=== PATIENT | male | born 1985 | race Caucasian/White ===

== ENCOUNTER 2019-04-15 13:53 | Emergency (ER) | payer OTHER ==
--- NOTE | 2019-04-15 14:25 | EDM.PDOC ---
ED HPI GENERAL MEDICAL PROBLEM - General Chief Complaint: Respiratory Problem Stated Complaint: POSSIBLE BLOOD CLOT Time Seen by Provider: 04/15/19 13:56 Source of Information: Reports: Patient History Limitations: Reports: No Limitations - History of Present Illness INITIAL COMMENTS - FREE TEXT/NARRATIVE: HISTORY AND PHYSICAL: History of present illness: Patient is a 33-year-old male presents to the ED today with concern of possible blood clot in his left leg and possible on the right side of his lung. Patient states he has had swelling off and on the left leg over the past several weeks with having a sharp pain in the right side of the top of his lung over the past 2 days. 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 Patient states he was on anticoagulation has not been taking it for quite some time. Patient denies any associated of symptoms. Patient denies fever, chills, chest pain, shortness of breath, or cough. Denies headache, neck stiff ness, change in vision, syncope, or near syncope. Denies nausea, vomiting, abdominal pain, diarrhea, constipation, or dysuria. Has not noted any blood in urine or stool. Patient has been eating and drinking appropriately. Review of systems: As per history of present illness and below otherwise all systems reviewed and negative. Past medical history: As per history of present illness and as reviewed below otherwise noncontributory. Surgical history: As per history of present illness and as reviewed below otherwise noncontributory. Social history: See social history for further information Family history: As per history of present illness and as reviewed below otherwise noncontributory. Physical exam: General: Patient is alert, oriented, and in no acute distress. Patient sitting comfortably on exam table. HEENT: Atraumatic, normocephalic, pupils equal and reactive bilaterally, negative for conjunctival pallor or scleral icterus, mucous membranes moist, TMs normal bilaterally, throat clear, neck supple, nontender, trachea midline. No drooling or trismus noted. No meningeal signs. No hot potato voice noted. Lungs: Clear to auscultation, breath sounds equal bilaterally, chest nontender. Heart: S1S2, regular rate and rhythm without overt murmur Abdomen: Soft, nondistended, nontender. Negative for masses or hepatosplenomegaly. Negative for costovertebral tenderness. Pelvis: Stable nontender. Genitourinary: Deferred. Rectal: Deferred. Skin: Intact, warm, dry. No lesions or rashes noted. Extremities: Atraumatic, negative for cords or calf pain. Neurovascular unremarkable. No obvious deformity or swelling of the bilateral lower extremities. No erythema or pain with palpation of the lower extremities. Dorsalis pedis and posterior tibial pulses are grossly intact bilaterally with capillary refill less than 2 seconds. Neuro: Awake, alert, oriented. Cranial nerves II through XII unremarkable. Cerebellum unremarkable. Motor and sensory unremarkable throughout. Exam nonfocal. Notes: Discussed the importance for follow-up with a primary care provider. Voices understanding and is agreeable to plan of care. Denies any further questions or concerns at this time. Diagnostics: CBC, CMP, UA, EKG, troponin, ang CT, lt lower extremity ultrasound Therapeutics: None Prescription: None Impression: Atypical chest pain Medical screening exam Plan: 1. You can alternate ibuprofen and Tylenol as directed for pain and discomfort. 2. Follow-up with her primary care provider as discussed. Return to the ED as needed and as discussed. Definitive disposition and diagnosis as appropriate pending reevaluation and review of above. Right Upper Chest Pain Score (Numeric/FACES): 8 - Related Data Allergies Allergy/AdvReac Type Severity Reaction Status Date / Time No Known Allergies Allergy Verified 04/15/19 14:23 Home Meds: Home Meds . [No Known Home Meds] 04/15/19 [History] ED ROS GENERAL - Review of Systems Review Of Systems: Comprehensive ROS is negative, except as noted in HPI. ED EXAM, GENERAL - Physical Exam Exam: See Below (see dictation) Course - Vital Signs Last Recorded V/S: Last Vital Signs Temp 97.9 F 04/15/19 14:19 Pulse 95 04/15/19 14:19 Resp 18 04/15/19 14:19 BP 135/78 04/15/19 14:19 Pulse Ox 96 04/15/19 14:19 - Orders/Labs/Meds Orders: Active Orders 24 hr Category Date Time Status EKG Documentation Completion [RC] STAT Care 04/15/19 14:23 Active RT Aerosol Therapy [RC] ASDIRECTED Care 04/15/19 14:26 Inactive UA RFX SYD AND CULT IF INDIC [URIN] Stat Lab 04/15/19 14:23 Ordered Labs: Laboratory Tests 04/15/19 04/15/19 04/15/19 Range/Units 15:04 15:04 15:04 WBC 7.75 (4.0-11.0) K/uL RBC 5.18 (4.50-5.90) M/uL Hgb 16.7 (13.0-17.0) g/dL Hct 47.4 (38.0-50.0) % MCV 91.5 (80.0-98.0) fL MCH 32.2 H (27.0-32.0) pg MCHC 35.2 (31.0-37.0) g/dL RDW Std Deviation 43.5 (28.0-62.0) fl RDW Coeff of Arely 13 (11.0-15.0) % Plt Count 298 (150-400) K/uL MPV 11.40 (7.40-12.00) fL Neut % (Auto) 59.1 (48.0-80.0) % Lymph % (Auto) 27.2 (16.0-40.0) % Cochran % (Auto) 10.1 (0.0-15.0) % Eos % (Auto) 3.2 (0.0-7.0) % Baso % (Auto) 0.4 (0.0-1.5) % Neut # (Auto) 4.6 (1.4-5.7) K/uL Lymph # (Auto) 2.1 (0.6-2.4) K/uL Cochran # (Auto) 0.8 (0.0-0.8) K/uL Eos # (Auto) 0.3 (0.0-0.7) K/uL Baso # (Auto) 0.0 (0.0-0.1) K/uL Nucleated RBC % 0.0 /100WBC Nucleated RBCs # 0 K/uL INR 1.03 Sodium 138 (136-148) mmol/L Potassium 4.4 (3.5-5.1) mmol/L Chloride 103 (98-107) mmol/L Carbon Dioxide 27.8 (21.0-32.0) mmol/L BUN 20 H (7.0-18.0) mg/dL Creatinine 1.3 (0.8-1.3) mg/dL Est Cr Clr Drug Dosing 90.37 mL/min Estimated GFR (MDRD) > 60.0 ml/min Glucose 116 H (74-106) mg/dL Calcium 8.6 (8.5-10.1) mg/dL Total Bilirubin 0.5 (0.2-1.0) mg/dL AST 19 (15-37) IU/L ALT 31 (14-63) IU/L Alkaline Phosphatase 66 (46-116) U/L Troponin I < 0.050 (0.000-0.056) ng/mL Total Protein 8.0 (6.4-8.2) g/dL Albumin 4.1 (3.4-5.0) g/dL Globulin 3.9 (2.6-4.0) g/dL Albumin/Globulin Ratio 1.1 (0.9-1.6) Meds: Medications Discontinued Medications Generic Name Dose Route Start Last Admin Trade Name Freq PRN Reason Stop Dose Admin Albuterol/Ipratropium 3 ml 04/15/19 14:26 04/15/19 14:29 Duoneb 3.0-0.5 Mg/3 Ml NEB 04/15/19 14:27 Not Given ONETIME ONE Iopamidol 50 ml 04/15/19 16:17 04/15/19 16:17 Isovue Multipack-370 (76%) IVPUSH 04/15/19 16:18 50 ml ONETIME STA Administration Departure - Departure Time of Disposition: 16:36 Disposition: Home, Self-Care 01 Clinical Impression: Encounter for medical screening examination Chest pain Qualifiers: Chest pain type: unspecified Qualified Code(s): R07.9 - Chest pain, unspecified - Discharge Information Referrals: PCP,None [Primary Care Provider] - Forms: ED Department Discharge Additional Instructions: The following information is given to patients seen in the emergency department who are being discharged to home. This information is to outline your options for follow-up care. We provide all patients seen in our emergency department with a follow-up referral. The need for follow-up, as well as the timing and circumstances, are variable depending upon the specifics of your emergency department visit. If you don't have a primary care physician on staff, we will provide you with a referral. We always advise you to contact your personal physician following an emergency department visit to inform them of the circumstance of the visit and for follow-up with them and/or the need for any referrals to a consulting specialist. The emergency department will also refer you to a specialist when appropriate. This referral assures that you have the opportunity for follow-up care with a specialist. All of these measure are taken in an effort to provide you with optimal care, which includes your follow-up. Under all circumstances we always encourage you to contact your private physician who remains a resource for coordinating your care. When calling for follow-up care, please make the office aware that this follow-up is from your recent emergency room visit. If for any reason you are refused follow-up, please contact the [facility] Emergency Department at and asked to speak to the emergency department charge nurse. [facility] [address] [place] [id number] [place] [address] 1. You can alternate ibuprofen and Tylenol as directed for pain and discomfort. 2. Follow-up with her primary care provider as discussed. Return to the ED as needed and as discussed. - My Orders Last 24 Hours: My Active Orders 04/15/19 14:23 EKG Documentation Completion [RC] STAT UA RFX SYD AND CULT IF INDIC [URIN] Stat 04/15/19 14:26 RT Aerosol Therapy [RC] ASDIRECTED - Assessment/Plan Last 24 Hours: My Active Orders 04/15/19 14:23 EKG Documentation Completion [RC] STAT UA RFX SYD AND CULT IF INDIC [URIN] Stat 04/15/19 14:26 RT Aerosol Therapy [RC] ASDIRECTED
[2019-04-15] MEDS ORDERED: Albuterol/Ipratropium 3.0-0.5 MG/3 ML Neb Soln NEB ONE (14:26)
[2019-04-15 15:39] LABS: BLOOD UREA NITROGEN,BUN 20 mg/dL (7.0-18.0); CARBON DIOXIDE,CO2 27.8 mmol/L (21.0-32.0); CHLORIDE,CL 103 mmol/L (98-107); GLUCOSE RANDOM 116 mg/dL (74-106); POTASSIUM,K 4.4 mmol/L (3.5-5.1); SODIUM,NA 138 mmol/L (136-148)
[2019-04-15] MEDS ORDERED: Iopamidol 755 MG/ML 500 ML Multipack Bottle IVPUSH STA (16:17)
--- NOTE | 2019-04-15 16:27 | US ---
Left lower extremity deep venous ultrasound: Duplex and color flow imaging was obtained of the left common femoral, superficial femoral, popliteal, anterior tibial and posterior tibial veins. Findings: Blood flow and compression seen within the deep veins. Impression: No evidence of deep venous thrombosis seen within the left lower extremity. Diagnostic code #1 MTDD
--- NOTE | 2019-04-15 16:33 | CT ---
CT chest Technique: Multiple axial sections through the chest were obtained. Intravenous contrast was utilized. Study performed as a pulmonary angiogram protocol. Findings: Pulmonary arteries are moderately well-opacified. No filling defects are seen to indicate discrete pulmonary embolism. Mediastinum and hilar region show no adenopathy or mass. No pericardial thickening is seen. No acute parenchymal change is seen. Inferior portion of both lung bases not included on study. Bone window settings were reviewed which shows nothing acute. Impression: 1. No discrete pulmonary embolism. 2. Nothing acute is seen on the visualized portions of the chest. Diagnostic code #1 MTDD
== END 2019-04-15 16:52 | disposition home or self-care (01) ==
LOC: MW.ED 13:53
DX: Z13.89 Encounter for screening for other disorder (principal); R07.89 Other chest pain
CPT/HCPCS: 36415; 71275; 80053; 84484; 85025; 85610; 93971; 99284; Q9967; 93005; 99283

== ENCOUNTER 2019-08-28 23:07 | Emergency (ER) | payer OTHER ==
--- NOTE | 2019-08-29 00:37 | US ---
INDICATION: pain posterior left knee, swelling calf, hx dvt in 2018 LEFT LOWER EXTREMITY VENOUS DUPLEX ULTRASOUND TECHNIQUE: Duplex sonography using grayscale imaging as well as color and spectral Doppler interrogation was performed over the left lower extremity with attention to the deep venous system. COMPARISON: 04/15/2019. FINDINGS: The left common femoral, femoral, deep femoral, popliteal, and posterior tibial veins show normal compressibility, color Doppler flow, and augmentation response. IMPRESSION: No evidence of deep venous thrombosis in the left lower extremity. GURU JOHNSON MD [employer] Dictated by: Urban Johnson MD @ 08/29/2019 00:35:19 (Electronically Signed)
--- NOTE | 2019-08-29 00:45 | EDM.PDOC ---
ED HPI GENERAL MEDICAL PROBLEM - General Chief Complaint: Lower Extremity Injury/Pain Stated Complaint: LEFT LEG BLOOD C Time Seen by Provider: 08/28/19 23:40 Source of Information: Reports: Patient - History of Present Illness INITIAL COMMENTS - FREE TEXT/NARRATIVE: The patient is a 33-year-old male with a history of lupus and protein C&S deficiency who presents to the ER for left lower extremity swelling. He has not been taking any of his medications for quite some time and he has moved up here from [place]. Left Lower Leg Pain Score (Numeric/FACES): 8 - Related Data Allergies Allergy/AdvReac Type Severity Reaction Status Date / Time No Known Allergies Allergy Verified 08/28/19 23:33 Home Meds: Home Meds . [No Known Home Meds] 04/15/19 [History] Past Medical History HEENT History: Reports: None Cardiovascular History: Reports: None Respiratory History: Reports: None Gastrointestinal History: Reports: None Genitourinary History: Reports: None Musculoskeletal History: Reports: None Neurological History: Reports: None Psychiatric History: Reports: None Endocrine/Metabolic History: Reports: None Hematologic History: Reports: Other (See Below) Other Hematologic History: Protein C and Protein S Deficiency, Lupus Immunologic History: Reports: None Oncologic (Cancer) History: Reports: None Dermatologic History: Reports: None - Infectious Disease History Infectious Disease History: Reports: None - Past Surgical History Head Surgeries/Procedures: Reports: None Social & Family History - Family History Family Medical History: Noncontributory - Tobacco Use Smoking Status *Q: Never Smoker Second Hand Smoke Exposure: No - Caffeine Use Caffeine Use: Reports: Soda - Recreational Drug Use Recreational Drug Use: Yes Drug Use in Last 12 Months: Yes Recreational Drug Type: Reports: Marijuana/Hashish Recreational Drug Use Frequency: Weekly Review of Systems - Review of Systems Review Of Systems: See Below (Left lower extremity swelling, negative fevers, negative for chest pain, negative for shortness of breath) ED EXAM, GENERAL - Physical Exam Exam: See Below Free Text/Narrative:: Constitutional: No acute distress, Non-toxic appearance. HEENT: Normocephalic, Atraumatic, EOMI Neck: Normal range of motion, No stridor, trachea midline Respiratory: No respiratory distress, No tachypnea Cardiovascular: Deferred Gastrointestinal: Deferred Genital / Urinary: Deferred Musculoskeletal: All four extremities present and atraumatic, the left lower extremity is significantly larger than the right but there is no swelling, no erythema or induration, no warmth, it just looks like the muscle itself is larger Back: FROM Integument: Warm, Dry, Color is ethnicity appropriate, No rash. Neuro: Alert, Awake, No focal deficits noted Psych: Affect, Judgement, mood normal Course - Vital Signs Text/Narrative:: DVT ultrasound of the left lower extremity was performed and is negative for any acute pathology. The patient states that he has information to get himself a primary care physician follow-up and will follow-up as appropriate. Last Recorded V/S: Last Vital Signs Temp 36.0 C L 08/28/19 23:33 Pulse 76 08/29/19 00:57 Resp 14 08/29/19 00:57 BP 130/76 08/29/19 00:57 Pulse Ox 97 08/29/19 00:57 Departure - Departure Time of Disposition: 00:44 Disposition: Home, Self-Care 01 Condition: Good Clinical Impression: Left leg swelling - Discharge Information Instructions: Medical Screening Exam Referrals: PCP,None [Primary Care Provider] - Forms: ED Department Discharge Sepsis Event Note - Evaluation Sepsis Screening Result: No Definite Risk - Focused Exam Vital Signs: Vital Signs Temp Pulse Resp BP Pulse Ox 08/29/19 00:57 76 14 130/76 97 08/28/19 23:33 36.0 C L 74 15 149/83 H 96 Date Exam was Performed: 08/29/19 Time Exam was Performed: 01:25
== END 2019-08-29 00:57 | disposition home or self-care (01) ==
LOC: MW.ED 23:07
DX: R22.42 Localized swelling, mass and lump, left lower limb (principal); M32.9 Systemic lupus erythematosus, unspecified
CPT/HCPCS: 93971-26-LT; 93971-LT; 99283; 99283-25